=== PATIENT | male | born 1965 | race African-American/Black ===

== ENCOUNTER 2023-08-30 12:53 | Inpatient (IN) | payer OTHER ==
[2023-08-30 13:23] VITALS: BMI 21.4
[2023-08-30] MEDS ORDERED: MAG HYDROX/AL HYDROX/SIMETH 30 ML UNIT-DOSE CUP PO PRN (15:49)
[2023-08-30] MEDS ORDERED: COLLOIDAL OATMEAL 1 BAR EACH TP PRN (15:49)
[2023-08-30] MEDS ORDERED: hydrOXYzine PAMOATE 25 MG CAPSULE (FP) PO PRN (15:49)
[2023-08-30] MEDS ORDERED: POLYETHYLENE GLYCOL (HEALTHYLAX) 3350 17 GM PACKET PO PRN (15:49)
[2023-08-30] MEDS ORDERED: guaiFENesin 600 MG TABLET.ER (FP) PO PRN (15:49)
[2023-08-30] MEDS ORDERED: BENZONATATE 200 MG CAPSULE PO PRN (15:49)
[2023-08-30] MEDS ORDERED: LOPERAMIDE HCL 2 MG CAPSULE PO PRN (15:49)
[2023-08-30] MEDS ORDERED: IBUPROFEN 600 MG TABLET (FP) PO PRN (15:49)
[2023-08-30] MEDS ORDERED: NALOXONE HCL 0.4 MG/ML VIAL IM PRN (15:49)
[2023-08-30] MEDS ORDERED: NALOXONE HCL (KLOXXADO) 8 MG SPRAY NS PRN (15:49)
[2023-08-30] MEDS ORDERED: MAGNESIUM HYDROX 2400MG/30ML ORAL SUSPENSION 30 ML CUP PO PRN (15:49)
[2023-08-30] MEDS ORDERED: IBUPROFEN 400 MG TABLET (FP) PO PRN (15:49)
[2023-08-30] MEDS ORDERED: ACETAMINOPHEN 325 MG TABLET (FP) PO PRN (15:49)
[2023-08-30] MEDS ORDERED: MELATONIN 5 MG TABLETS ONE (23:19)
[2023-08-30] MEDS: THIAMINE HCL 100 MG TABLET (FP) PO SCH (23:21)
[2023-08-30] MEDS: MELATONIN 5 MG TABLETS PO SCH (23:21)
[2023-08-31] MEDS ORDERED: cloNIDine HCL 0.1 MG TABLET PO ONE (06:25)
[2023-08-31] MEDS: PRENATAL VITAMINS W/ FOLIC ACID TABLET (FP) PO SCH (09:28)
[2023-08-31] MEDS: cloNIDine HCL 0.1 MG TABLET PO SCH (09:28)
[2023-08-31] MEDS ORDERED: risperiDONE 0.5 MG TABLET PO SCH (10:00)
[2023-08-31] MEDS ORDERED: LATANOPROST 0.005% OPHTH SOLN 2.5ML BOTTLE OS SCH (10:00)
[2023-08-31 13:09] LABS: HEMATOCRIT 44.2 % (35.4-49); HEMOGLOBIN 14.7 GM/dL (11.7-16.9); MCH 27.7 pg (25.7-33.7); MCHC 33.4 g/dl (32.0-35.9); MEAN CELL VOLUME 82.9 fl (80-96); MEAN PLT VOLUME 9.3 fl (7.5-11.1); PLATELET COUNT 180 10^3/uL (134-434); RBC 5.33 M/mm3 (4.00-5.60); RDW 14.4 % (11.9-15.9); WHITE BLOOD COUNT 7.1 K/mm3 (4.0-10.0)
[2023-08-31 13:25] LABS: CHLORIDE 105 mmol/L (98-107); POTASSIUM 3.8 mmol/L (3.5-5.1); SODIUM 138 mmol/L (136-145)
[2023-08-31 13:29] LABS: CALCIUM 9.2 mg/dL (8.5-10.1)
[2023-08-31 13:30] LABS: ALBUMIN 3.5 g/dl (3.4-5.0); ANION GAP 7 mmol/L (4-13); BLOOD UREA NITROGEN 17.4 mg/dL (7-18); CO2 26 mmol/L (21-32); GLUCOSE,RANDOM 170 mg/dL (74-106)
[2023-08-31 13:32] LABS: CREATININE 1.2 mg/dL (0.55-1.3); SGPT/ALT 55 U/L (13-61)
[2023-08-31 13:33] LABS: SGOT/AST 30 U/L (15-37)
[2023-08-31 13:34] LABS: BILIRUBIN,TOTAL 0.4 mg/dL (0.2-1); TOT PROT 7.1 g/dl (6.4-8.2)
[2023-08-31 13:35] LABS: ALK PHOS 56 U/L (45-117)
[2023-08-31 14:56] LABS: PH,URINE 7.5 (5.0-8.0); URINE APPEARANCE CLEAR; URINE BILIRUBIN NEGATIVE (NEGATIVE); URINE COLOR YELLOW; URINE GLUCOSE (UA) NEGATIVE (NEGATIVE); URINE KETONE NEGATIVE (NEGATIVE); URINE LEUK ESTERASE NEGATIVE (NEGATIVE); URINE NITRITE NEGATIVE (NEGATIVE); URINE PROTEIN NEGATIVE (NEGATIVE); URINE UROBILINOGEN 0.2 mg/dL (0.2-1.0)
[2023-08-31] MEDS ORDERED: traZODone HCL 150 MG TABLET PO SCH (22:00)
[2023-08-31] MEDS: MELATONIN 5 MG TABLETS PO SCH (22:48)
[2023-08-31] MEDS: LATANOPROST 0.005% OPHTH SOLN 2.5ML BOTTLE OS SCH (22:48)
[2023-08-31] MEDS: THIAMINE HCL 100 MG TABLET (FP) PO SCH (22:48)
[2023-09-01] MEDS: cloNIDine HCL 0.1 MG TABLET PO SCH (09:32)
[2023-09-01] MEDS: PRENATAL VITAMINS W/ FOLIC ACID TABLET (FP) PO SCH (09:33)
[2023-09-01] MEDS: risperiDONE 0.5 MG TABLET PO SCH (10:28)
[2023-09-01] MEDS ORDERED: AMMONIUM LACTATE 12% LOTION 225 GM BOTTLE TP PRN (15:52)
[2023-09-01] MEDS: THIAMINE HCL 100 MG TABLET (FP) PO SCH (21:18)
[2023-09-01] MEDS: BACLOFEN 10 MG TABLET (FP) PO SCH (21:19)
[2023-09-01] MEDS: LATANOPROST 0.005% OPHTH SOLN 2.5ML BOTTLE OS SCH (21:19)
[2023-09-01] MEDS: traZODone HCL 50 MG TABLET (FP) PO SCH (21:19)
[2023-09-02] MEDS: cloNIDine HCL 0.1 MG TABLET PO SCH (10:10)
[2023-09-02] MEDS: BACLOFEN 10 MG TABLET (FP) PO SCH ×2 (10:10→21:04)
[2023-09-02] MEDS: risperiDONE 0.5 MG TABLET PO SCH (10:10)
[2023-09-02] MEDS: PRENATAL VITAMINS W/ FOLIC ACID TABLET (FP) PO SCH (10:10)
[2023-09-02] MEDS: traZODone HCL 50 MG TABLET (FP) PO SCH (21:04)
[2023-09-02] MEDS: THIAMINE HCL 100 MG TABLET (FP) PO SCH (21:04)
[2023-09-02] MEDS: LATANOPROST 0.005% OPHTH SOLN 2.5ML BOTTLE OS SCH (21:04)
[2023-09-03] MEDS: risperiDONE 0.5 MG TABLET PO SCH (09:44)
[2023-09-03] MEDS: BACLOFEN 10 MG TABLET (FP) PO SCH ×2 (09:44→21:12)
[2023-09-03] MEDS: cloNIDine HCL 0.1 MG TABLET PO SCH (09:44)
[2023-09-03] MEDS: PRENATAL VITAMINS W/ FOLIC ACID TABLET (FP) PO SCH (09:44)
[2023-09-03] MEDS: LATANOPROST 0.005% OPHTH SOLN 2.5ML BOTTLE OS SCH (21:11)
[2023-09-03] MEDS: traZODone HCL 50 MG TABLET (FP) PO SCH (21:12)
[2023-09-03] MEDS: THIAMINE HCL 100 MG TABLET (FP) PO SCH (21:12)
[2023-09-04] MEDS: cloNIDine HCL 0.1 MG TABLET PO SCH (09:12)
[2023-09-04] MEDS: BACLOFEN 10 MG TABLET (FP) PO SCH ×2 (09:13→21:12)
[2023-09-04] MEDS: risperiDONE 0.5 MG TABLET PO SCH (09:13)
[2023-09-04] MEDS: PRENATAL VITAMINS W/ FOLIC ACID TABLET (FP) PO SCH (09:13)
[2023-09-04] MEDS: traZODone HCL 50 MG TABLET (FP) PO SCH (21:12)
[2023-09-04] MEDS: THIAMINE HCL 100 MG TABLET (FP) PO SCH (21:12)
[2023-09-04] MEDS: LATANOPROST 0.005% OPHTH SOLN 2.5ML BOTTLE OS SCH (21:13)
[2023-09-05] MEDS: PRENATAL VITAMINS W/ FOLIC ACID TABLET (FP) PO SCH (09:05)
[2023-09-05] MEDS: BACLOFEN 10 MG TABLET (FP) PO SCH ×2 (09:05→21:13)
[2023-09-05] MEDS: cloNIDine HCL 0.1 MG TABLET PO SCH (09:05)
[2023-09-05] MEDS: risperiDONE 0.5 MG TABLET PO SCH (09:05)
[2023-09-05] MEDS: NIFEdipine E.R. 30 MG TABLET PO SCH (12:31)
[2023-09-05] MEDS: THIAMINE HCL 100 MG TABLET (FP) PO SCH (21:12)
[2023-09-05] MEDS: LATANOPROST 0.005% OPHTH SOLN 2.5ML BOTTLE OS SCH (21:13)
[2023-09-05] MEDS: traZODone HCL 50 MG TABLET (FP) PO SCH (21:13)
[2023-09-06] MEDS: risperiDONE 0.5 MG TABLET PO SCH (09:24)
[2023-09-06] MEDS: BACLOFEN 10 MG TABLET (FP) PO SCH ×2 (09:24→21:04)
[2023-09-06] MEDS: cloNIDine HCL 0.1 MG TABLET PO SCH (09:24)
[2023-09-06] MEDS: PRENATAL VITAMINS W/ FOLIC ACID TABLET (FP) PO SCH (09:25)
[2023-09-06] MEDS: NIFEdipine E.R. 30 MG TABLET PO SCH (09:47)
[2023-09-06] MEDS: THIAMINE HCL 100 MG TABLET (FP) PO SCH (21:04)
[2023-09-06] MEDS: traZODone HCL 50 MG TABLET (FP) PO SCH (21:05)
[2023-09-06] MEDS: LATANOPROST 0.005% OPHTH SOLN 2.5ML BOTTLE OS SCH (21:51)
[2023-09-07] MEDS: risperiDONE 0.5 MG TABLET PO SCH (09:55)
[2023-09-07] MEDS: cloNIDine HCL 0.1 MG TABLET PO SCH (09:55)
[2023-09-07] MEDS: NIFEdipine E.R. 30 MG TABLET PO SCH (09:55)
[2023-09-07] MEDS: BACLOFEN 10 MG TABLET (FP) PO SCH ×2 (09:56→21:12)
[2023-09-07] MEDS: PRENATAL VITAMINS W/ FOLIC ACID TABLET (FP) PO SCH (09:56)
[2023-09-07] MEDS: traZODone HCL 50 MG TABLET (FP) PO SCH (21:11)
[2023-09-07] MEDS: THIAMINE HCL 100 MG TABLET (FP) PO SCH (21:12)
[2023-09-07] MEDS: LATANOPROST 0.005% OPHTH SOLN 2.5ML BOTTLE OS SCH (21:36)
[2023-09-08] MEDS: NIFEdipine E.R. 30 MG TABLET PO SCH (09:40)
[2023-09-08] MEDS: risperiDONE 0.5 MG TABLET PO SCH (09:40)
[2023-09-08] MEDS: BACLOFEN 10 MG TABLET (FP) PO SCH ×2 (09:40→21:08)
[2023-09-08] MEDS: cloNIDine HCL 0.1 MG TABLET PO SCH (09:40)
[2023-09-08] MEDS: PRENATAL VITAMINS W/ FOLIC ACID TABLET (FP) PO SCH (09:40)
[2023-09-08] MEDS: traZODone HCL 50 MG TABLET (FP) PO SCH (21:08)
[2023-09-08] MEDS: LATANOPROST 0.005% OPHTH SOLN 2.5ML BOTTLE OS SCH (21:08)
[2023-09-08] MEDS: THIAMINE HCL 100 MG TABLET (FP) PO SCH (21:08)
[2023-09-09] MEDS: cloNIDine HCL 0.1 MG TABLET PO SCH (09:41)
[2023-09-09] MEDS: risperiDONE 0.5 MG TABLET PO SCH (09:41)
[2023-09-09] MEDS: PRENATAL VITAMINS W/ FOLIC ACID TABLET (FP) PO SCH (09:41)
[2023-09-09] MEDS: BACLOFEN 10 MG TABLET (FP) PO SCH ×2 (09:41→21:14)
[2023-09-09] MEDS: NIFEdipine E.R. 30 MG TABLET PO SCH (09:41)
[2023-09-09] MEDS: LATANOPROST 0.005% OPHTH SOLN 2.5ML BOTTLE OS SCH (21:13)
[2023-09-09] MEDS: THIAMINE HCL 100 MG TABLET (FP) PO SCH (21:14)
[2023-09-09] MEDS: traZODone HCL 50 MG TABLET (FP) PO SCH (21:14)
[2023-09-10] MEDS: cloNIDine HCL 0.1 MG TABLET PO SCH (09:40)
[2023-09-10] MEDS: BACLOFEN 10 MG TABLET (FP) PO SCH ×2 (09:40→21:04)
[2023-09-10] MEDS: NIFEdipine E.R. 30 MG TABLET PO SCH (09:40)
[2023-09-10] MEDS: risperiDONE 0.5 MG TABLET PO SCH (09:40)
[2023-09-10] MEDS: PRENATAL VITAMINS W/ FOLIC ACID TABLET (FP) PO SCH (09:41)
[2023-09-10] MEDS: DOXYCYCLINE HYCLATE 100 MG TABLET PO SCH (17:24)
[2023-09-10] MEDS ORDERED: AMOX TR/POT CLAV 500MG/125MG TABLETS (FP) PO SCH (17:30)
[2023-09-10] MEDS: LATANOPROST 0.005% OPHTH SOLN 2.5ML BOTTLE OS SCH (21:04)
[2023-09-10] MEDS: THIAMINE HCL 100 MG TABLET (FP) PO SCH (21:04)
[2023-09-10] MEDS: traZODone HCL 50 MG TABLET (FP) PO SCH (21:04)
[2023-09-11] MEDS: BACLOFEN 10 MG TABLET (FP) PO SCH ×2 (09:43→21:02)
[2023-09-11] MEDS: cloNIDine HCL 0.1 MG TABLET PO SCH (09:43)
[2023-09-11] MEDS: DOXYCYCLINE HYCLATE 100 MG TABLET PO SCH ×2 (09:43→17:46)
[2023-09-11] MEDS: risperiDONE 0.5 MG TABLET PO SCH (09:43)
[2023-09-11] MEDS: NIFEdipine E.R. 30 MG TABLET PO SCH (09:43)
[2023-09-11] MEDS: PRENATAL VITAMINS W/ FOLIC ACID TABLET (FP) PO SCH (09:44)
[2023-09-11] MEDS: traZODone HCL 50 MG TABLET (FP) PO SCH (21:02)
[2023-09-11] MEDS: THIAMINE HCL 100 MG TABLET (FP) PO SCH (21:03)
[2023-09-11] MEDS: LATANOPROST 0.005% OPHTH SOLN 2.5ML BOTTLE OS SCH (21:52)
[2023-09-12] MEDS: risperiDONE 0.5 MG TABLET PO SCH (09:43)
[2023-09-12] MEDS: NIFEdipine E.R. 30 MG TABLET PO SCH (09:43)
[2023-09-12] MEDS: PRENATAL VITAMINS W/ FOLIC ACID TABLET (FP) PO SCH (09:43)
[2023-09-12] MEDS: DOXYCYCLINE HYCLATE 100 MG TABLET PO SCH ×2 (09:43→17:32)
[2023-09-12] MEDS: BACLOFEN 10 MG TABLET (FP) PO SCH ×2 (09:43→21:19)
[2023-09-12] MEDS: cloNIDine HCL 0.1 MG TABLET PO SCH (09:43)
[2023-09-12] MEDS: BENZOCAINE/MENTHOL (CHLORASEPTIC ) LOZENGE MM PRN ×2 (16:05→20:01)
[2023-09-12] MEDS: THIAMINE HCL 100 MG TABLET (FP) PO SCH (21:19)
[2023-09-12] MEDS: LATANOPROST 0.005% OPHTH SOLN 2.5ML BOTTLE OS SCH (21:19)
[2023-09-12] MEDS: traZODone HCL 50 MG TABLET (FP) PO SCH (21:19)
[2023-09-13] MEDS: BENZOCAINE/MENTHOL (CHLORASEPTIC ) LOZENGE MM PRN (06:36)
[2023-09-13] MEDS: DOXYCYCLINE HYCLATE 100 MG TABLET PO SCH ×2 (10:09→18:25)
[2023-09-13] MEDS: cloNIDine HCL 0.1 MG TABLET PO SCH (10:09)
[2023-09-13] MEDS: BACLOFEN 10 MG TABLET (FP) PO SCH ×2 (10:09→21:05)
[2023-09-13] MEDS: PRENATAL VITAMINS W/ FOLIC ACID TABLET (FP) PO SCH (10:10)
[2023-09-13] MEDS: NIFEdipine E.R. 30 MG TABLET PO SCH (10:10)
[2023-09-13] MEDS: risperiDONE 0.5 MG TABLET PO SCH (10:10)
[2023-09-13] MEDS: guaiFENesin 200 MG/10 ML 10 ML UNIT-DOSE CUPS PO PRN ×2 (11:59→18:27)
[2023-09-13] MEDS: THIAMINE HCL 100 MG TABLET (FP) PO SCH (21:05)
[2023-09-13] MEDS: traZODone HCL 50 MG TABLET (FP) PO SCH (21:05)
[2023-09-13] MEDS: LATANOPROST 0.005% OPHTH SOLN 2.5ML BOTTLE OS SCH (21:06)
[2023-09-14] MEDS: BENZOCAINE/MENTHOL (CHLORASEPTIC ) LOZENGE MM PRN (02:23)
[2023-09-14 06:43] VITALS: RESP 16; TEMP 97.4
[2023-09-14] MEDS: NIFEdipine E.R. 30 MG TABLET PO SCH (09:10)
[2023-09-14] MEDS: cloNIDine HCL 0.1 MG TABLET PO SCH (09:10)
[2023-09-14] MEDS: PRENATAL VITAMINS W/ FOLIC ACID TABLET (FP) PO SCH (09:10)
[2023-09-14] MEDS: BACLOFEN 10 MG TABLET (FP) PO SCH (09:10)
[2023-09-14] MEDS: risperiDONE 0.5 MG TABLET PO SCH (09:10)
[2023-09-14] MEDS: DOXYCYCLINE HYCLATE 100 MG TABLET PO SCH (09:10)
[2023-09-14 09:20] VITALS: BP 133/82; PULSE 94
== END 2023-09-14 09:14 | disposition home or self-care (01) | DRG 772 ==
LOC: YASAS 12:53 → Y3E 23:56
PROVIDERS: ADMIT Surgery; ATTEND Psychiatry & Neurology Pain Medicine
PROC: HZ42ZZZ Group Counseling for Substance Abuse Treatment, Cognitive-Behavioral (ICD-10-PCS; principal; 2023-08-30)
DX: F11.20 Opioid dependence, uncomplicated (principal); F14.20 Cocaine dependence, uncomplicated; F12.20 Cannabis dependence, uncomplicated; F19.280 Other psychoactive substance dependence with psychoactive substance-induced anxiety disorder; F31.9 Bipolar disorder, unspecified; F25.9 Schizoaffective disorder, unspecified; I10 Essential (primary) hypertension; J45.20 Mild intermittent asthma, uncomplicated; H66.92 Otitis media, unspecified, left ear; R05.9 Cough, unspecified; Z87.891 Personal history of nicotine dependence; Z86.11 Personal history of tuberculosis
CPT/HCPCS: 36415; 71046-TC-FY; 80053; 80307; 81003; 82962; 83036; 85027; 86780; 87635; 87811; 93005; 93010; J0475